=== PATIENT | female | born 1990 | race American Indian/Alaskan Native ===

== ENCOUNTER 2017-07-24 21:09 | Emergency (ER) | payer OTHER ==
[2017-07-24] MEDS ORDERED: TYLENOL PO ONE (22:20)
[2017-07-24] MEDS ORDERED: TYLENOL ONE (22:26)
[2017-07-24 22:27] VITALS: BP 123/78
== END 2017-07-25 00:40 | disposition left against medical advice (07) ==
LOC: ED 21:09
DX: J11.1 Influenza due to unidentified influenza virus with other respiratory manifestations (principal); Z53.21 Procedure and treatment not carried out due to patient leaving prior to being seen by health care provider
CPT/HCPCS: 87116; 87430